=== PATIENT | female | born 1980 | race Caucasian/White ===

== ENCOUNTER 2022-08-11 05:30 | Observation (INO) | payer BC ==
[2022-08-04 10:49] LABS: BASOPHILS % (AUTO) 0.6 % (0-1); EOSINOPHILS % (AUTO) 0.8 % (0-6); LYMPHOCYTES # (AUTO) 1.2 X10'3 (1.1-4.8); MEAN CORPUSCULAR HEMOGLOBIN 23.9 PG (27.0-31.0); MEAN CORPUSCULAR HGB CONC 31.9 g/dL (33.0-36.5); MEAN CORPUSCULAR VOLUME 74.9 FL (78-98); MEAN PLATELET VOLUME 9.1 FL (7.4-10.4); MONOCYTES # (AUTO) 0.3 X10'3 (0-0.9); MONOCYTES % (AUTO) 5.2 % (2-12); NEUTROPHILS # (AUTO) 4.3 X10'3 (1.8-7.7); NEUTROPHILS % (AUTO) 72.4 % (42-75); PRE OP HEMATOCRIT 34.4 % (35.0-45.0); PRE OP PLATELET COUNT 213 X10'3 (140-440); RED BLOOD COUNT 4.59 X10'6 (4.20-5.60); RED CELL DISTRIBUTION WIDTH 17.9 % (11.5-14.5)
[2022-08-04 11:10] LABS: ALBUMIN 3.5 G/DL (3.4-5.0); ALKALINE PHOSPHATASE 93 IU/L (46-116); BLOOD UREA NITROGEN 12 MG/DL (7-18); BUN/CREATININE RATIO 14.1 (6.6-38.0); CALCIUM 8.7 MG/DL (8.5-10.1); CHLORIDE 108 MMOL/L (99-107); CREATININE 0.85 MG/DL (0.40-0.90); PRE OP ALT 20 U/L (30-65); PRE OP ANION GAP 8 (8-16); PRE OP AST 13 U/L (10-37); PRE OP BILIRUB, TOTAL 0.2 MG/DL (0.0-1.0); PRE OP GLUCOSE 102 MG/DL (70-104); PRE OP SODIUM 141 MMOL/L (135-145); TOTAL CARBON DIOXIDE 25.4 MMOL/L (24-32); TOTAL PROTEIN 6.9 G/DL (6.4-8.2); eGFR 73 ML/MIN
[2022-08-04 11:14] LABS: HCG SERUM QL NEGATIVE
[2022-08-11] VITALS (18 sets, daily range): BP systolic 112–175; BP diastolic 46–86
[~2022-08-11] VITALS: Ht 170.2 cm; Wt 119.2 kg
[~2022-08-11 05:30] MED LIST: TAMO20TA4 PO; ceFAZolin inj. 3,000 MG in normal saline 100ml IV soln 100 ML IV ONE; famotidine 20mg tablet PO ONE; ringers solution, lacted 1,000 ML IV SCH
[2022-08-11] MEDS ORDERED: BUPIVAcaine 0.25% w/Epi /PF 30ml vial ONE (07:15)
[2022-08-11] MEDS ORDERED: methylene blue (5mg/ml) 50mg/10ml ampul IV ONE (07:16)
[2022-08-11] MEDS ORDERED: ondansetron/PF 4mg/2ml inj IV PRN ×2 (07:20→12:15)
[2022-08-11] MEDS ORDERED: ringers solution, lacted 1,000 ML IV SCH (07:20)
[2022-08-11] MEDS ORDERED: fentaNYL/PF 50MCG/1 ML 2ML syringe IV PRN ×2 (07:20)
[2022-08-11] MEDS ORDERED: labetalol 20mg/4ml (5mg/ml) syringe IV PRN (07:20)
[2022-08-11] MEDS ORDERED: hydrALAZINE 20mg/ml inj. IV PRN (07:20)
[2022-08-11] MEDS ORDERED: morphine 2 MG/ML inj. syringe IV PRN ×2 (07:20→12:15)
[2022-08-11] MEDS ORDERED: fentaNYL/PF 50MCG/1 ML 2ML syringe ONE ×2 (07:25→09:05)
[2022-08-11] MEDS ORDERED: propofol inj 20 ML IV ONE (07:26)
[2022-08-11] MEDS ORDERED: ondansetron/PF 4mg/2ml inj ONE (07:26)
[2022-08-11] MEDS ORDERED: midazolam 1 mg/ML 2ml injection ONE ×2 (07:26)
[2022-08-11] MEDS ORDERED: dexamethasone sod phosphate 4mg/ml inj. ONE (07:26)
[2022-08-11 07:28] LABS: PRE OP PARTIAL THROMB. TIME 29 SECONDS (22-32)
[2022-08-11] MEDS ORDERED: BUPIVACAINE liposomal/PF 13.3 MG/ML vial IM ONE (07:35)
[2022-08-11] MEDS ORDERED: BUPIVAcaine 0.5% inj/PF 30 ML ONE (07:35)
[2022-08-11] MEDS ORDERED: LIDOcaine 2% (20mg/ml) 5ml vial ONE (07:37)
[2022-08-11] MEDS ORDERED: dexmedetomidine 200mcg/2ml inj. IV ONE (07:37)
[2022-08-11] MEDS ORDERED: sevoflurane 250ml liquid IH ONE (07:37)
[2022-08-11] MEDS ORDERED: ketorolac trometh. 30mg/ml inj. ONE (10:20)
--- NOTE | 2022-08-11 10:35 | NUR ---
Received from OR via [facility]OSPITAL BED TO ROOM 7, accompanied by Anesthesiologist DR UGTHRIE and report given by Anesthesiolgist. PT PRESNTS WITH PIV 20G LEFT AC, STAN DRAIN AND BOUBACAR WRAP ON UPPER CHEST CDI, VSS. Addendum: 08/11/22 at 1103 by Sugar Scales RN, RN Amended: Links added.
[2022-08-11] MEDS: morphine 4 MG/ML inj SYRINge IV PRN ×2 (11:08→12:52)
[2022-08-11] MEDS ORDERED: acetaminophen 325mg tablet PO PRN (12:15)
--- NOTE | 2022-08-11 12:56 | NUR ---
Received from OR via GURNEY TO ROOM 8, accompanied by Anesthesiologist DR GUTHRIE and report given by Anesthesiolgist. PT PRESENTS WITH PIV 20G RIGHT FOREARM, DRESSING AND BINDER ON CHEST CDI, VSS.
[2022-08-11] MEDS: normal saline 1000ml 1,000 ML IV SCH ×2 (14:54→16:44)
[2022-08-11] MEDS: HYDROcodone/acetaminophen 5mg/325mg tablet PO PRN ×3 (15:07→23:27)
--- NOTE | 2022-08-11 15:45 | NUR ---
Report called to receiving nurse JUAN CARLOS GONZÁLES. Transferred via [facility] RUBY TO ROOM 340A. PT HADS 2 PT BELONGINGS BAGS THAT WENT TO ROOM 340A WITH PT. BED IN LOW LOCKED POSITION LWITH CALL LIGHT IN REACH. Special Issues communicated to receiving nurse. Addendum: 08/11/22 at 1614 by Sugar Scales RN RN Amended: Links added.
--- NOTE | 2022-08-11 18:34 | NUR ---
Problems reprioritized. Patient report given, questions answered & plan of care reviewed with Kayla GONZÁLES.
[2022-08-11] MEDS ORDERED: cefazolin/dext.iso 2gm/100ml 50 ML IV ONE (22:30)
[2022-08-12] MEDS: HYDROcodone/acetaminophen 5mg/325mg tablet PO PRN ×2 (03:47→07:34)
[2022-08-12 06:00] VITALS: BP 145/53
--- NOTE | 2022-08-12 06:19 | NUR ---
Problems reprioritized. Patient report given, questions answered & plan of care reviewed with Brandee GONZÁLES. Addendum: 08/12/22 at 0620 by Kayla Eduardo RN Amended: Links added.
[2022-08-12] MEDS ORDERED: cefazolin/dext.iso 2gm/100ml 100 ML IV ONE (08:00)
--- NOTE | 2022-08-12 08:40 | NUR ---
Dr. Scott in to see patient and educate patient and Aunt.
[2022-08-12 10:00] VITALS: BP 148/64
--- NOTE | 2022-08-12 10:22 | NUR ---
Educated patient that Aunt should not be emptying the STAN drains, or pushing on the IV pump.
--- NOTE | 2022-08-12 11:40 | NUR ---
Went over discharge with patient and Aunt, tape and instructions given.
== END 2022-08-12 12:30 | disposition home or self-care (01) ==
LOC: PAS 05:30 → SUR 3N 08:00
PROVIDERS: ADMIT Surgery; ATTEND Surgery
DX: C50.911 Malignant neoplasm of unspecified site of right female breast (principal); E66.9 Obesity, unspecified; Z15.01 Genetic susceptibility to malignant neoplasm of breast; Z17.0 Estrogen receptor positive status [ER+]; Z79.899 Other long term (current) drug therapy
CPT/HCPCS: 19303; 36415; 38500; 80053; 82948; 84703; 85025; 85610; 85730; 86885; 86900; 86901; 87081; 93005; 96365; 96366; 96375; 96376; A6258; C9290; G0378; J0690; J1100; J1885; J2250; J2270; J2405; J2704; J3010; J3490; J7030; J7120; Q9968; S0020; A4215; A4618; A6253; A6449; A7000